=== PATIENT | female | born 1995 | race Caucasian/White ===

== ENCOUNTER 2017-02-11 10:05 | Day surgery (SDC) | payer BC ==
[~2017-02-11 10:05] MED LIST: Sodium Chloride 0.9% 10 ML Syringe FLUSH PRN
[2017-02-11] MEDS: Lactated Ringers 1,000 ML IV SCH ×2 (11:15→15:39)
[2017-02-11] MEDS ORDERED: Lactated Ringers 1,000 ML IV ONE (11:50)
[2017-02-11] MEDS ORDERED: Neostigmine Methylsulfate 10 MG/10 ML MDV IVPUSH ONE (11:50)
[2017-02-11] MEDS ORDERED: fentaNYL 100 MCG/2 ML SDV IV ONE (11:50)
[2017-02-11] MEDS ORDERED: Ketorolac 30 MG/ML SDV IVPUSH ONE (11:50)
[2017-02-11] MEDS ORDERED: Lidocaine 2% 100 MG/5 ML Syringe IVPUSH ONE (11:50)
[2017-02-11] MEDS ORDERED: Propofol 200 MG/20 ML SDV IV ONE (11:50)
[2017-02-11] MEDS ORDERED: Ondansetron 4 MG/2 ML SDV IVPUSH ONE (11:50)
[2017-02-11] MEDS ORDERED: HYDROmorphone 2 MG/ML SDV IV ONE (11:50)
[2017-02-11] MEDS ORDERED: hydrOXYzine HCl 50 MG/ML SDV IM ONE (11:50)
[2017-02-11] MEDS ORDERED: Morphine 10 MG/ML Syringe IVPUSH ONE (11:50)
[2017-02-11] MEDS ORDERED: Meperidine PF 75 MG/ML Syringe IV ONE (11:50)
[2017-02-11] MEDS ORDERED: Glycopyrrolate 0.2 MG/ML 5 ML MDV IV ONE (11:50)
[2017-02-11] MEDS ORDERED: Dexamethasone 4 MG/ML 5 ML MDV IVPUSH ONE (11:50)
[2017-02-11] MEDS ORDERED: Midazolam 1 MG/ML 2 ML SDV IV ONE (11:50)
[2017-02-11] MEDS ORDERED: Rocuronium 50 MG/5 ML Vial IV ONE (11:50)
--- NOTE | 2017-02-11 13:15 | PCM.HPR ---
H & P Addendum review - H & P Addendum Review Date of Original H & P: 02/06/17 Date Reviewed: 02/11/17 Time Reviewed: 11:30 Patient was Examined: No Changes
--- NOTE | 2017-02-11 13:19 | PCM.OPNOTE ---
- General Post-Op/Procedure Note Date of Surgery/Procedure: 02/11/17 Operative Procedure(s): Lap Jane Pre Op Diagnosis: Chronic Cholecystitis Post-Op Diagnosis: Same Anesthesia Technique: General ET Tube Primary Surgeon: Estevan Dinh Anesthesia Provider: Mira Brown Pathology: Gall bladder EBL in mLs: 10 Complications: None Condition: Good
--- NOTE | 2017-02-11 14:53 | OR ---
DATE OF OPERATION: 02/11/2017 SURGEON: Estevan Dinh MD PREOPERATIVE DIAGNOSIS: Chronic cholecystitis. POSTOPERATIVE DIAGNOSIS: Chronic cholecystitis. PROCEDURE: Laparoscopic cholecystectomy. WOMEN'S ACTIVITIES ADVISER: None. ANESTHESIA: General. PROCEDURE: The patient was brought to the operating room, where general endotracheal anesthesia was administered. The abdomen was prepped with ChloraPrep and draped sterilely. An infraumbilical incision was made and extended into the peritoneal cavity without difficulty. The [place] cannulator was introduced and a pneumoperitoneum obtained. The remaining three 5-mm ports were placed in the usual positions. General exploration revealed the surface of the liver, stomach, omentum, bowel, and peritoneal surfaces to be normal. The gallbladder was grasped and retracted cephalad. The cystic artery and cystic duct were clearly dissected free. Minimal oozing occurred during the dissection. The cystic artery was doubly clipped proximally and once distally and then transected. The anatomy of the cystic duct was reconfirmed and could be seen entering the gallbladder and extending towards the common bile duct. This was doubly clipped proximally and once distally and then transected. The gallbladder was then removed from the bed of the liver without difficulty. No bile leakage occurred. The gallbladder was brought out through the umbilical incision. The right upper quadrant was irrigated and inspected, return was clear, and hemostasis was assured. Ports were removed under direct vision and remained hemostatic. The umbilical fascia was closed with [id number] #0 Vicryl. The skin was closed with #4-0 Vicryl subcuticular sutures. Benzoin and Steri-Strips were placed and Band-Aids applied. The patient tolerated the procedure well. Estimated blood loss is 5 cc. Patient returned to postanesthesia in stable condition. /[id number] DAISY/DOYLE
[2017-02-11] MEDS ORDERED: Morphine 2 MG/ML Syringe IVPUSH PRN (15:28)
[2017-02-11] MEDS: Acetaminophen/HYDROcodone 325-5 MG Tab PO PRN ×2 (17:55→21:30)
[2017-02-11 20:17] VITALS: BP 106/67
== END 2017-02-11 21:30 | disposition home or self-care (01) ==
LOC: FB.SDS 10:05 → FB.MS 18:51 → FB.SDS 21:30
PROVIDERS: ATTEND Surgery
DX: K81.1 Chronic cholecystitis (principal); F41.1 Generalized anxiety disorder; F32.5 Major depressive disorder, single episode, in full remission; Z91.018 Allergy to other foods; Z79.899 Other long term (current) drug therapy; Z90.49 Acquired absence of other specified parts of digestive tract
CPT/HCPCS: 47562; 81025; 88304; A9270; J1100; J1170; J1885; J2175; J2250; J2270; J2405; J2704; J2710; J3010; J3410; J7120